=== PATIENT | male | born 1980 | race Caucasian/White ===

== ENCOUNTER 2017-01-23 22:12 | Emergency (ER) | payer BC ==
[~2017-01-23] VITALS: Ht 188 cm; Wt 90.7 kg
[2017-01-23 22:17] VITALS: BP_SYST 149
== END 2017-01-23 23:15 ==
LOC: SED 22:12
DX: S00.01XA Abrasion of scalp, initial encounter (principal); W22.8XXA Striking against or struck by other objects, initial encounter; Y93.89 Activity, other specified; Y92.89 Other specified places as the place of occurrence of the external cause; Y99.8 Other external cause status
CPT/HCPCS: 99283